=== PATIENT | female | born 1965 | race African-American/Black ===

== ENCOUNTER 2016-10-15 13:59 | Emergency (ER) | payer MEDICAID ==
[~2016-10-15] VITALS: Ht 144.8 cm; Wt 68.0 kg
[2016-10-15] MEDS ORDERED: KETOROLAC 60MG/2ML VIAL IM ONE (18:00)
[2016-10-15 18:33] VITALS: BP 103/69
== END 2016-10-15 19:14 | disposition home or self-care (01) ==
LOC: ER 18:10
DX: M79.602 Pain in left arm (principal); M79.601 Pain in right arm; M79.642 Pain in left hand; M79.641 Pain in right hand; M77.9 Enthesopathy, unspecified
CPT/HCPCS: 29125; 81025; 96372; 99283; J1885

== ENCOUNTER 2018-04-05 08:50 | Emergency (ER) | payer MEDICAID ==
[~2018-04-05] VITALS: Ht 144.8 cm; Wt 76.0 kg
[2018-04-05 09:12] VITALS: BP 135/94
[2018-04-05] MEDS ORDERED: ALBUTEROL (0.083%) 2.5MG/3ML NEB HHN STA (12:23)
[2018-04-05] MEDS ORDERED: IBUPROFEN 600MG TABLET PO ONE (12:30)
[2018-04-05] MEDS ORDERED: ACETAMINOPHEN 325MG TABLET PO ONE (13:30)
[2018-04-06] MEDS ORDERED: ABIL10 PO (12:51)
[2018-04-06] MEDS ORDERED: DIVA500T3 PO (12:53)
[2018-04-06] MEDS ORDERED: B50 PO (12:53)
== END 2018-04-05 15:01 | disposition home or self-care (01) ==
LOC: ER 10:13
DX: J40 Bronchitis, not specified as acute or chronic (principal); J06.9 Acute upper respiratory infection, unspecified
CPT/HCPCS: 71046; 87804; 94640; 99284; J7611

== ENCOUNTER 2018-04-05 18:42 | Inpatient (IN) | payer MEDICAID ==
[~2018-04-05] VITALS: Ht 144.8 cm; Wt 66.4 kg
[2018-04-05] MEDS ORDERED: ONDANSETRON HCL 4MG/2ML INJ IV STA (22:58)
[2018-04-05] MEDS ORDERED: MORPHINE SULFATE 4 MG/ML CPJ (NOT FOR IM USE) IV STA (22:58)
[2018-04-05 23:49] LABS: BASOPHILS % 0.4 % (0.0-2.0); EOSINOPHILS % 1.5 % (0.0-5.0); HEMATOCRIT. 37.6 % (36.0-48.0); HEMOGLOBIN. 12.6 g/dL (12.0-16.0); LYMPHOCYTES % 44.6 % (20.0-50.0); MEAN CORPUSCULAR HEMOGLOBIN 31.5 pg (28.0-32.0); MEAN CORPUSCULAR VOLUME 94.2 fL (81.0-99.0); MEAN PLATELET VOLUME 7.3 fl (7.4-10.4); MONOCYTES % 9.2 % (2.0-8.0); NEUTROPHILS % 44.3 % (40.0-76.0); PLATELET 273 x1000/uL (130-400); RED BLOOD CELL COUNT 3.99 mill/uL (4.2-5.4); RED CELL DISTRIBUTION WIDTH 13.8 % (11.6-14.6)
[2018-04-05 23:58] LABS: CHLORIDE 106 mEq/L (98-107)
[2018-04-06] MEDS ORDERED: ALBUTEROL (0.083%) 2.5MG/3ML NEB HHN ONE (00:15)
[2018-04-06] MEDS ORDERED: ONDANSETRON HCL 4MG/2ML INJ IV ONE (01:00)
[2018-04-06] MEDS ORDERED: MORPHINE SULFATE 2 MG/ML CPJ (NOT FOR IM USE) IV ONE (01:00)
[2018-04-06 01:08] LABS: CLARITY URINE CLEAR (CLEAR); COLOR URINE YELLOW (YELLOW); KETONES URINE NEGATIVE (NEGATIVE); LEUKOCYTE ESTERASE URINE 3+ (NEGATIVE); NITRITE URINE NEGATIVE (NEGATIVE); OCCULT BLOOD URINE TRACE (NEGATIVE); PROTEIN URINE NEGATIVE (NEGATIVE); SPECIFIC GRAVITY URINE 1.009 (1.005-1.030); UROBILINOGEN URINE 0.2 E.U./dL (0.2-1.0)
[2018-04-06] MEDS ORDERED: MORPHINE SULFATE 4 MG/ML CPJ (NOT FOR IM USE) IV SCH (01:30)
[2018-04-06] MEDS ORDERED: MORPHINE SULFATE 4 MG/ML CPJ (NOT FOR IM USE) IV ONE (01:30)
[2018-04-06] MEDS ORDERED: SULFAMETHOXAZOLE/TRIMETHOPRIM 800/160MG TABLET PO ONE (01:45)
[2018-04-06] MEDS ORDERED: ASPIRIN 81MG TABLET PO ONE (02:45)
[2018-04-06] MEDS ORDERED: ACETAMINOPHEN 325MG TABLET PO PRN ×2 (02:45→03:45)
[2018-04-06] MEDS ORDERED: IPRATROPIUM/ALBUTEROL 0.5-3(2.5)MG/3ML NEB INH PRN (03:45)
[2018-04-06] MEDS ORDERED: DIPHENHYDRAMINE 50MG/ML VIAL IV PRN (03:45)
[2018-04-06] MEDS ORDERED: GUAIFENESIN 200MG/10ML SUGAR FREE UDC PO PRN (03:45)
[2018-04-06] MEDS ORDERED: CLONIDINE 0.1MG TABLET PO PRN (03:45)
[2018-04-06] MEDS ORDERED: ONDANSETRON HCL 4MG/2ML INJ IV PRN (03:45)
[2018-04-06] MEDS ORDERED: MAGNESIUM/ALUMINUM HYDROXIDE/SIMETHICONE 30ML UDC PO PRN (03:45)
[2018-04-06 09:30] VITALS: BP 99/44
[2018-04-06 11:11] LABS: *AMPHETAMINES SCREEN URINE NEGATIVE (NEGATIVE); *BARBITURATES SCREEN URINE NEGATIVE (NEGATIVE); *BENZODIAZEPINES SCREEN URINE NEGATIVE (NEGATIVE); *COCAINE SCREEN URINE NEGATIVE (NEGATIVE); CANNABINOID URINE SCREEN NEGATIVE (NEGATIVE); METHADONE URINE SCREEN NEGATIVE (NEGATIVE); OPIATES URINE SCREEN PRESUMTIVE POSITIVE (NEGATIVE); PHENCYCLIDINE URINE SCREEN NEGATIVE (NEGATIVE)
[2018-04-06 12:00] VITALS: BP 102/58
[2018-04-06] MEDS: AZITHROMYCIN 500 MG TABLET PO SCH (12:17)
[2018-04-06 12:42] VITALS: BP 99/44
[2018-04-06] MEDS ORDERED: ABIL10 PO (12:51)
[2018-04-06] MEDS ORDERED: B50 PO (12:53)
[2018-04-06] MEDS ORDERED: DIVA500T3 PO (12:53)
[2018-04-06] MEDS: KETOROLAC 30MG/ML VIAL IV PRN ×2 (13:01→21:40)
[2018-04-06] MEDS: SODIUM CHLORIDE 0.9% INJ 3ML FLUSH IVF SCH ×2 (13:32→21:28)
[2018-04-06 16:00] VITALS: BP 101/58
[2018-04-06] MEDS: DIVALPROEX SODIUM 250MG ER TABLET PO SCH (18:13)
[2018-04-06] MEDS: ARIPIPRAZOLE 10MG TABLET PO SCH (18:13)
[2018-04-06 20:00] VITALS: BP 96/69
[2018-04-06] MEDS: FAMOTIDINE 20MG TABLET PO SCH (21:28)
[2018-04-07] VITALS: BP 103/71
[2018-04-07 04:00] VITALS: BP 95/45
[2018-04-07] MEDS: SODIUM CHLORIDE 0.9% INJ 3ML FLUSH IVF SCH ×2 (05:43→14:00)
[2018-04-07 08:00] VITALS: BP 114/76
[2018-04-07] MEDS: FAMOTIDINE 20MG TABLET PO SCH (08:25)
[2018-04-07] MEDS: ARIPIPRAZOLE 10MG TABLET PO SCH (08:25)
[2018-04-07] MEDS: DIVALPROEX SODIUM 250MG ER TABLET PO SCH (08:25)
[2018-04-07] MEDS: AZITHROMYCIN 500 MG TABLET PO SCH (08:25)
[2018-04-07 12:00] VITALS: BP 121/56
[2018-04-07 14:08] VITALS: BP 95/68
== END 2018-04-07 15:11 | disposition home or self-care (01) | DRG 203 ==
LOC: ER 18:42 → 7WST 04-06 02:40 → EDBEDREQ 04-06 02:43 → EDBEDREQTM 04-06 02:43 → ENRESERV 04-06 07:31
PROVIDERS: ADMIT Internal Medicine; ATTEND Internal Medicine
DX: R07.89 Other chest pain (principal); F32.9 Major depressive disorder, single episode, unspecified; R10.13 Epigastric pain; Z83.3 Family history of diabetes mellitus; Z56.0 Unemployment, unspecified
CPT/HCPCS: 36415; 71045; 76700; 80305; 83880; 84484; 93005; 94640; 96374; 96375; 96376; 97162; 99285; J1200; J1885; J2270; J2405; J7611

== ENCOUNTER 2020-09-16 21:51 | Emergency (ER) | payer OTHER, MEDICAID ==
[~2020-09-16] VITALS: Ht 144.8 cm; Wt 75.0 kg
[~2020-09-16 21:51] MED LIST: ABIL10 PO; B50 PO; DIVA500T3 PO
[2020-09-16 22:09] VITALS: BP 108/81
[2020-09-16] MEDS ORDERED: IBUP-2028 PO (22:29)
[2020-09-16] MEDS ORDERED: IBUPROFEN 400MG TABLET PO ONE (22:30)
== END 2020-09-16 22:45 | disposition home or self-care (01) ==
LOC: ER 22:26
DX: R51.9 Headache, unspecified (principal); M54.2 Cervicalgia; V43.52XA Car driver injured in collision with other type car in traffic accident, initial encounter; Y93.89 Activity, other specified; Y92.488 Other paved roadways as the place of occurrence of the external cause
CPT/HCPCS: 99282

== ENCOUNTER 2022-01-12 09:08 | Emergency (ER) | payer MEDICARE, MEDICAID ==
[~2022-01-12] VITALS: Ht 144.8 cm; Wt 77.0 kg
[~2022-01-12 09:08] MED LIST changes: +IBUP-2028 PO
[2022-01-12 09:24] VITALS: BP 142/93
== END 2022-01-12 11:02 | disposition home or self-care (01) ==
LOC: ER 09:17
DX: S83.8X1A Sprain of other specified parts of right knee, initial encounter (principal); W01.0XXA Fall on same level from slipping, tripping and stumbling without subsequent striking against object, initial encounter; Y93.89 Activity, other specified; Y92.018 Other place in single-family (private) house as the place of occurrence of the external cause
CPT/HCPCS: 73560; 99283

== ENCOUNTER 2022-04-28 18:15 | Inpatient (IN) | payer MEDICARE, MEDICAID ==
[~2022-04-28] VITALS: Ht 144.8 cm; Wt 78.5 kg
[2022-04-28] MEDS ORDERED: IBUPROFEN 600MG TABLET PO ONE (19:15)
[2022-04-28 22:50] LABS: HEMATOCRIT 36.5 % (36.0-48.0); HEMOGLOBIN 12.5 g/dL (12.0-16.0); MEAN CORPUSCULAR HEMOGLOBIN 31.6 pg (28.0-32.0); MEAN CORPUSCULAR VOLUME 92.6 fL (81.0-99.0); PLATELET 270 x1000/uL (130-400); RED BLOOD CELL COUNT 3.95 mill/uL (4.2-5.4); RED CELL DISTRIBUTION WIDTH 14.4 % (11.6-14.6)
[2022-04-28 22:57] LABS: CHLORIDE 107 mEq/L (98-107)
[2022-04-28 23:02] LABS: PARTIAL THROMBOPLASTIN TIME 27.9 sec (23.4-31.0); PROTHROMBIN TIME 10.5 sec (9.6-11.0)
[2022-04-29] VITALS (7 sets, daily range): BP systolic 92–121; BP diastolic 60–75
[2022-04-29] MEDS ORDERED: MAGNESIUM/ALUMINUM HYDROXIDE/SIMETHICONE 30ML UDC PO PRN (02:45)
[2022-04-29] MEDS ORDERED: GUAIFENESIN 200MG/10ML SUGAR FREE UDC PO PRN (02:45)
[2022-04-29] MEDS ORDERED: DOCUSATE SODIUM 100MG CAPSULE PO PRN (02:45)
[2022-04-29] MEDS ORDERED: ACETAMINOPHEN 325MG TABLET PO PRN ×2 (02:45)
[2022-04-29] MEDS ORDERED: CLONIDINE 0.1MG TABLET PO PRN (02:45)
[2022-04-29] MEDS ORDERED: ONDANSETRON HCL 4MG/2ML INJ IV PRN (02:45)
[2022-04-29] MEDS ORDERED: IPRATROPIUM/ALBUTEROL 0.5-3(2.5)MG/3ML NEB HHN PRN (02:45)
[2022-04-29 03:50] LABS: VITAMIN B12 SERUM 366 pg/mL (211-911)
[2022-04-29] MEDS ORDERED: FAMOTIDINE 20MG/2ML VIAL IV SCH (09:00)
[2022-04-29] MEDS: ENOXAPARIN 40MG/0.4ML SYR SUBCUT SCH (09:27)
[2022-04-29] MEDS ORDERED: IPRATROPIUM BROMIDE (0.02%) 0.5MG/2.5ML NEB HHN PRN (17:30)
[2022-04-29] MEDS ORDERED: ALBUTEROL (0.083%) 2.5MG/3ML NEB HHN PRN (17:30)
[2022-04-29] MEDS ORDERED: IBUP-2030 MT (17:58)
[2022-04-29] MEDS: FAMOTIDINE 20MG TABLET PO SCH (20:31)
[2022-04-30] VITALS: BP 94/60
[2022-04-30 04:00] VITALS: BP 104/66
[2022-04-30 06:26] LABS: BASOPHILS % 0.4 % (0.0-2.0); EOSINOPHILS % 1.6 % (0.0-5.0); HEMATOCRIT. 37.7 % (36.0-48.0); LYMPHOCYTES % 53.8 % (20.0-50.0); MEAN CORPUSCULAR HEMOGLOBIN 31.9 pg (28.0-32.0); MEAN CORPUSCULAR VOLUME 92.6 fL (81.0-99.0); MEAN PLATELET VOLUME 7.8 fl (7.4-10.4); MONOCYTES % 6.9 % (2.0-8.0); NEUTROPHILS % 37.3 % (40.0-76.0); PLATELET 267 x1000/uL (130-400); RED BLOOD CELL COUNT 4.08 mill/uL (4.2-5.4); RED CELL DISTRIBUTION WIDTH 14.3 % (11.6-14.6)
[2022-04-30 08:00] VITALS: BP 104/72
[2022-04-30] MEDS: FAMOTIDINE 20MG TABLET PO SCH (08:48)
[2022-04-30] MEDS: ENOXAPARIN 40MG/0.4ML SYR SUBCUT SCH (08:50)
[2022-04-30 09:36] VITALS: BP 104/72
[2022-04-30 15:05] LABS: CHLORIDE 107 mEq/L (98-107)
[2022-04-30 15:23] LABS: HDL CHOLESTEROL 66 mg/dL (40-59); LDL CHOLESTEROL 94 mg/dL (5-100); T4 FREE 0.75 ng/dL (0.76-1.46)
== END 2022-04-30 10:15 | disposition home or self-care (01) | DRG 558 ==
LOC: ER 18:56 → 7EST 22:27 → ENRESERV 23:55
PROVIDERS: ADMIT Internal Medicine; ATTEND Internal Medicine
DX: M71.21 Synovial cyst of popliteal space [Baker], right knee (principal); Z79.899 Other long term (current) drug therapy; Z82.49 Family history of ischemic heart disease and other diseases of the circulatory system; Z83.3 Family history of diabetes mellitus; W19.XXXA Unspecified fall, initial encounter
CPT/HCPCS: 36415; 73562; 73721; 80053; 80061; 82607; 82746; 83036; 84439; 84443; 85025; 85027; 93971; 97162; 97166; 99291; J1650; J3490

== ENCOUNTER 2022-07-06 15:50 | Emergency (ER) | payer MEDICARE, MEDICAID ==
[~2022-07-06] VITALS: Ht 165.1 cm; Wt 79.0 kg
[~2022-07-06 15:50] MED LIST changes: +IBUP-2030 MT
[2022-07-06 18:05] LABS: BASOPHILS % 0.3 % (0.0-2.0); EOSINOPHILS % 1.5 % (0.0-5.0); HEMOGLOBIN. 12.2 g/dL (12.0-16.0); LYMPHOCYTES % 43.1 % (20.0-50.0); MEAN CORPUSCULAR VOLUME 94.1 fL (81.0-99.0); MEAN PLATELET VOLUME 7.4 fl (7.4-10.4); MONOCYTES % 6.4 % (2.0-8.0); NEUTROPHILS % 48.7 % (40.0-76.0); PLATELET 308 x1000/uL (130-400); RED BLOOD CELL COUNT 3.82 mill/uL (4.2-5.4); RED CELL DISTRIBUTION WIDTH 13.7 % (11.6-14.6)
[2022-07-06 18:14] LABS: CHLORIDE 108 mEq/L (98-107)
[2022-07-06 18:16] LABS: PARTIAL THROMBOPLASTIN TIME 29.3 sec (23.4-31.0); PROTHROMBIN TIME 10.3 sec (9.6-11.0)
[2022-07-06] MEDS ORDERED: IBUP-2028 MT (19:12)
[2022-07-06] MEDS ORDERED: KETOROLAC 60MG/2ML VIAL IM ONE (19:15)
[2022-07-06] MEDS ORDERED: T3 PO (19:17)
[2022-07-06 19:33] VITALS: BP 108/69
== END 2022-07-06 19:33 | disposition home or self-care (01) ==
LOC: ER 15:50
DX: M79.661 Pain in right lower leg (principal); Z79.899 Other long term (current) drug therapy
CPT/HCPCS: 36415; 80053; 85025; 85610; 85730; 93970; 96372; 99285; J1885

== ENCOUNTER 2023-03-30 11:44 | Emergency (ER) | payer OTHER, MEDICAID ==
[~2023-03-30] VITALS: Ht 152.4 cm; Wt 74.0 kg
[~2023-03-30 11:44] MED LIST changes: +IBUP-2028 MT; +T3 PO
[2023-03-30 12:04] VITALS: TEMP 99.6; O2SAT 100
[2023-03-30] MEDS ORDERED: KETOROLAC 15MG/ML VIAL IM ONE (14:00)
[2023-03-30] MEDS ORDERED: DEXAMETHASONE 10 MG/ML VIAL IM ONE (14:00)
[2023-03-30] MEDS ORDERED: KETOROLAC 15MG/ML VIAL IM NR (14:00)
[2023-03-30] MEDS ORDERED: BENZ1LOZ73 MT (16:16)
[2023-03-30] MEDS ORDERED: NAPR-681 MT (16:16)
[2023-03-30] MEDS ORDERED: TUSSL MT (16:16)
[2023-03-30 17:42] VITALS: BP 112/86; PULSE 112; RESP 20
== END 2023-03-30 17:39 | disposition home or self-care (01) ==
LOC: ER 11:44
DX: J02.9 Acute pharyngitis, unspecified (principal); Z79.899 Other long term (current) drug therapy; Z20.822 Contact with and (suspected) exposure to COVID-19
CPT/HCPCS: 87430; 87070; 87804 ×2; 71045; 93005; 96372; 99285; 87426; J1100; J1885; C9803; Z7610